=== PATIENT | female | born 1955 | race Caucasian/White ===

== ENCOUNTER → 2020-07-14 | Outpatient (CLI) | payer MEDICARE ==
--- NOTE | 2020-07-16 09:07 | MM ---
Reason for exam: screening (asymptomatic). Last mammogram was performed 10 years and 2 months ago. History: Patient is postmenopausal and is nulliparous. Benign stereotactic core biopsy of the right breast, July 12, 1999. Physical Findings: A clinical breast exam by your physician is recommended on an annual basis and results should be correlated with mammographic findings. MG 3D Screening Mammo W/Cad Bilateral CC and MLO view(s) were taken. Prior study comparison: May 24, 2010, bilateral digital screening mammogram. November 15, 2007, bilateral digital screening mammogram. The breast tissue is heterogeneously dense. This may lower the sensitivity of mammography. There are benign appearing round calcifications bilaterally. Previous mammotome biopsy in the right breast. There is chronic nodularity in the right breast. There is no discrete abnormality. ASSESSMENT: Benign, BI-RAD 2 RECOMMENDATION: Routine screening mammogram of both breasts in 1 year.
== END | disposition home or self-care (01) ==
LOC: RADMAMWWP 09:22
PROVIDERS: ATTEND Obstetrics & Gynecology
DX: Z12.31 Encounter for screening mammogram for malignant neoplasm of breast (principal)
CPT/HCPCS: 77063; 77067

== ENCOUNTER → 2020-08-09 | Outpatient (CLI) | payer MEDICARE ==
--- NOTE | 2020-08-09 12:07 | BD ---
EXAMINATION TYPE: Axial Bone Density DATE OF EXAM: 08/09/2020 COMPARISON: DEXA bone scan report 2007 CLINICAL HISTORY: Postmenopausal female Height: 5 FT 2 IN Weight: 247 FRAX RISK QUESTIONS: Alcohol (3 or more units per day): NO Family History (Parent hip fracture): NO Glucocorticoids (More than 3mos): NO (Ex: prednisone, prednisolone, methylprednisolone, dexamethasone, and hydrocortisone). History of Fracture in Adulthood: NO Secondary Osteoporosis: 1. Type 1 Diabetes: NO 2. Hyperthyroidism: NO 3. Menopause before 45: NO 4. Malnutrition: NO 5. Chronic liver disease: NO Rheumatoid Arthritis: NO Current Tobacco Use: NO RISK FACTORS HISTORY OF: Family History of Osteoporosis: NO Active: YES Diet low in dairy products/other sources of calcium: NO Postmenopausal woman: AGE 48 Take estrogen and/or progesterone medications: NONE Lost more than 2 inches in height since high school: NO MEDICATIONS: Additional Medications: METFORMIN Additional History: EXAM MEASUREMENTS: Bone mineral densitometry was performed using the [employer] System. Bone mineral density as measured about the Lumbar spine is: ----- L1-L4(G/cm2): 1.421 T Score Values are as follows: ----- L2: 1.2 ----- L3: 1.7 ----- L4: 3.2 ----- L1-L4: 2.0 Bone mineral density has: INCREASED 10.2 % since study of: 2007 Bone mineral density about the R hip (g/cm2): 1.012 Bone mineral density about the L hip (g/cm2): 1.034 T Score values are as follows: -----R Neck: -0.2 -----L Neck: 0.0 -----R Total: 0.9 -----L Total 1.4: Bone mineral density has: DECREASED -1.5 % since study of: 2007 IMPRESSION: Normal (Values between +1 and -1 indicate normal bone mass). Consider repeating this study in 5 year s or sooner if there is some new clinical indication. NOTE: T-SCORE=SD OF THE YOUNG ADULT MEAN.
== END | disposition home or self-care (01) ==
LOC: RADBDWWP 09:14
PROVIDERS: ATTEND Obstetrics & Gynecology
DX: N95.1 Menopausal and female climacteric states (principal)
CPT/HCPCS: 77080

== ENCOUNTER → 2021-04-05 | Outpatient (CLI) | payer MEDICARE ==
--- NOTE | 2021-04-05 15:58 | US ---
EXAMINATION TYPE: US pelvis complete transvag DATE OF EXAM: 04/05/2021 COMPARISON: NONE CLINICAL HISTORY: N95 Post menopausal bleeding. Spotting. TECHNIQUE: Transvaginal (TV) and Transabdominal (TA) . Transabdominal sonographic images of the pel vis were acquired. Transvaginal sonographic images were medically necessary to better assess the fol lowing anatomy: Endometrium Date of LMP: GREEN CHAINER EXAM MEASUREMENTS: Uterus: 6.8 x 4.2 x 2.9 cm Endometrial Stripe: 1.3 cm 1. Uterus: Anteverted Heterogenous 2. Endometrium: Thickened and slightly vascular, irregular borders 3. Right Ovary: Obscured by overlying bowel gas 4. Left Ovary: Obscured by overlying bowel gas 5. Bilateral Adnexa: wnl 6. Posterior cul-de-sac: no free fluid IMPRESSION: 1. The endometrial stripe is thickened and somewhat irregular measuring 1.3 cm. Correlate for endomet rial pathology including endometrial hyperplasia and carcinoma. 2. Heterogeneous appearance to the uterus is nonspecific.
== END | disposition home or self-care (01) ==
LOC: RADUSWWP 15:25
PROVIDERS: ATTEND Obstetrics & Gynecology
DX: N95.0 Postmenopausal bleeding (principal)
CPT/HCPCS: 76830; 76856

== ENCOUNTER → 2021-05-04 | Outpatient (CLI) | payer MEDICARE ==
[2021-05-04 19:27] LABS: Basophils # (A) 0.1 k/uL (0-0.2); Basophils % (A) 1 %; Eosinophils # (A) 0.1 k/uL (0-0.7); Eosinophils % (A) 1 %; HCT 42.8 % (34.0-46.0); HGB 14.8 gm/dL (11.4-16.0); Lymphocytes # (A) 2.4 k/uL (1.0-4.8); Lymphocytes % (A) 25 %; MCH 30.9 pg (25.0-35.0); MCHC 34.5 g/dL (31.0-37.0); MCV 89.4 fL (80.0-100.0); Mean Platelet Volume 8.7; Monocytes # (A) 0.4 k/uL (0-1.0); Monocytes % (A) 5 %; Neutrophils # (A) 6.2 k/uL (1.3-7.7); Neutrophils % (A) 67 %; Platelet Count 564 k/uL (150-450); RBC 4.79 m/uL (3.80-5.40); RDW 13.4 % (11.5-15.5); WBC 9.4 k/uL (3.8-10.6)
== END | disposition home or self-care (01) ==
LOC: LABPAT 14:04
PROVIDERS: ATTEND Obstetrics & Gynecology
DX: Z01.818 Encounter for other preprocedural examination (principal); I99.8 Other disorder of circulatory system; R94.31 Abnormal electrocardiogram [ECG] [EKG]
CPT/HCPCS: 85025; 93005

== ENCOUNTER 2021-05-20 11:05 | Day surgery (SDC) | payer MEDICARE ==
[2021-05-16 15:23] VITALS: BMI 41.1
--- NOTE | 2021-05-19 20:14 | P.HPOB ---
History of Present Illness H&P Date: 05/19/21 Chief Complaint: Postmenopausal bleeding, endometrial thickening This is a 66 y.o. female, 0, who presents for dilatation and curettage with hysteroscopy due to postmenopausal bleeding and endometrial thickening on ultrasound. She began noticing bleeding off and on about 6 months ago. It happens more often after lifting and is usually only when she wipes. Pelvic ultrasound showed uterus measuring 6.8 x 4.2 x 2.9 cm with endometrium measuring 1.3 cm, slightly vascular with irregular borders. Neither ovary was visualized. 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 Not currently sexually active. Social: Single. Works at [employer]. Review of Systems Constitutional: Denies chills, Denies fever Eyes: denies blurred vision, denies pain Ears, nose, mouth and throat: Denies headache, Denies sore throat Cardiovascular: Denies chest pain, Denies shortness of breath Respiratory: Denies cough Gastrointestinal: Denies abdominal pain, Denies diarrhea, Denies nausea, Denies vomiting Genitourinary: Reports abnormal vaginal bleeding, Reports stress incontinence, Denies dysuria, Denies hematuria Menstruation: Reports postmenopausal Musculoskeletal: Reports muscle cramps, Denies myalgias Integumentary: Denies pruritus, Denies rash Neurological: Denies numbness, Denies weakness Psychiatric: Denies anxiety, Denies depression Past Medical History Past Medical History: Diabetes Mellitus, Hyperlipidemia, Hypertension, Sleep Apnea/CPAP/BIPAP Additional Past Medical History / Comment(s): post menopausal bleeding, uses cpap,"prediabetes,states hgb A1C 7" History of Any Multi-Drug Resistant Organisms: MRSA Date of last positivie culture/infection: 2008 MDRO Source:: rt arm spider bite Past Surgical History: Cholecystectomy, Orthopedic Surgery Additional Past Surgical History / Comment(s): rt knee procedure Past Anesthesia/Blood Transfusion Reactions: Postoperative Nausea & Vomiting (PONV) Past Psychological History: No Psychological Hx Reported Smoking Status: Former smoker Past Alcohol Use History: Occasional Past Drug Use History: None Reported - Past Family History Mother Family Medical History: Cancer Father Family Medical History: Cancer Medications and Allergies Home Medications Medication Instructions Recorded Confirmed Type Acetaminophen [Tylenol] 325 - 650 mg PO Q4H PRN 05/17/21 05/17/21 History Atorvastatin [Lipitor] 10 mg PO DAILY 05/17/21 05/17/21 History Lisinopril-Hctz 10-12.5 mg 1 tab PO QAM 05/17/21 05/17/21 History [Zestoretic 10-12.5] metFORMIN HCL [Glucophage] 500 mg PO 1800 05/17/21 05/17/21 History Allergies Allergy/AdvReac Type Severity Reaction Status Date / Time Penicillins Allergy Unknown Verified 05/16/21 15:13 Sulfa (Sulfonamide Allergy Unknown Verified 05/16/21 15:13 Antibiotics) sulfamethoxazole Allergy Rash/Hives Verified 05/16/21 15:13 [From Bactrim] tetracycline Allergy Rash/Hives Verified 05/16/21 15:13 [From Achromycin] trimethoprim [From Bactrim] Allergy Rash/Hives Verified 05/16/21 15:13 Exam Osteopathic Statement: *. No significant issues noted on an osteopathic structural exam other than those noted in the History and Physical/Consult. HEENT: within normal limits Heart: regular rate and rhythm Lungs: clear to auscultation bilaterally Abdomen: soft, non-tender Pelvic: uterus mildly tender, anteverted, no adnexal masses, mildly tender on right Extremities: neg. Susanne's Assessment and Plan (1) Postmenopausal bleeding Status: Acute Code(s): N95.0 - POSTMENOPAUSAL BLEEDING SNOMED Code(s): 7674 2008 (2) Endometrial thickening on ultrasound Status: Acute Code(s): R93.89 - ABNORMAL FINDINGS ON DX IMAGING OF OTH BODY STRUCTURES SNOMED Code(s): 476433980 Plan: Proceed with dilatation and curettage with hysteroscopy. I have discussed the risks, benefits, and alternative therapies for the above- mentioned procedure and for both sedation/anesthesia as well as necessary blood products administration, if indicated, as they pertain to this patient. The patient has indicated her understanding and acceptance of the risks and procedures discussed.
[~2021-05-20 11:05] MED LIST: DEXAMETHASONE SOD PHOSPHATE 4 MG/ML 1 ML VIAL IV ONE; LACTATED RINGERS 1,000 ML IV SCH; MIDAZOLAM 2 MG/2 ML VIAL IV PRN; ONDANSETRON 4 MG/2 ML VIAL IVP ONE; Pre Op ABX Message 1 EACH MISC MISCELLANE ONE
[2021-05-20] MEDS ORDERED: LIDOCAINE 1% (10MG/ML) FOR IV START INTRADERMA ONE (12:09)
[2021-05-20 12:11] LABS: Glucose,Whole Blood 201 mg/dL (75-99)
[2021-05-20] MEDS ORDERED: fentaNYL (PF) 50 MCG/ML 2 ML AMP ONE (12:29)
[2021-05-20] MEDS ORDERED: PROPOFOL 10 MG/ML 20 ML VIAL IV ONE (12:29)
[2021-05-20] MEDS ORDERED: MIDAZOLAM 2 MG/2 ML VIAL ONE (12:29)
[2021-05-20] MEDS ORDERED: LIDOCAINE 1% INJ 10MG/ML (20 ML MDV) ONE (12:29)
--- NOTE | 2021-05-20 13:03 | P.OP ---
Date of Procedure: 05/20/21 Preoperative Diagnosis: Postmenopausal bleeding Endometrial thickening Postoperative Diagnosis: Same Procedure(s) Performed: Dilation and curettage with hysteroscopy Anesthesia: NERIS Surgeon: Frieda Corrales Estimated Blood Loss (ml): 10 Pathology: other (Endometrial curettings) Condition: stable Disposition: same day Indications for Procedure: This is a 66 y.o. female, 0, who presents for dilatation and curettage with hysteroscopy due to postmenopausal bleeding and endometrial thickening on ultrasound. She began noticing bleeding off and on about 6 months ago. It happens more often after lifting and is usually only when she wipes. Pelvic ultrasound showed uterus measuring 6.8 x 4.2 x 2.9 cm with endometrium measuring 1.3 cm, slightly vascular with irregular borders. Neither ovary was visualized. Operative Findings: The patient was taken to the operating room where she is placed in the dorsal lithotomy position. She is prepped and draped in the normal sterile fashion. Bladder is drained with a catheter and then removed. Examination is under anesthesia. Uterus is sounded be small, retroverted, with no adnexal masses palpated. Next a weighted speculum was placed in the patient's vagina and a right angle retractor was used to visualize the cervix. Anterior lip of the cervix is grasped with a single-tooth tenaculum. Cervix is gently dilated with a Palafox dilator until a out to be placed. Uterus is sounded to 7 cm. Cervix is gently dilated further until a hysteroscope could be passed. Hysteroscopy is performed using normal saline. The above noted findings are made and pictures are taken. There was a significant amount of thickened tissue visualized. Neither tubal ostia is visualized. Next a polyp forceps was introduced and a moderate amount of endometrial tissue was obtained. Next a medium-size sharp curet was introduced and sharp curettage was performed until a gritty texture was noted. A large amount of tissue was obtained. Next the single-tooth tenaculum was removed from the cervix. Pressure was applied with a ring forcep. Once the ring forcep was removed, no active bleeding was noted. All instrument are removed from the vagina. Thus minutes sent to pathology labeled endometrial curettings. Estimated blood loss is approximately 10 mL's. All sponge and needle counts are correct. Description of Procedure: Uterus is retroverted, sounded to 7 cm. No adnexal masses are palpated. A very thickened dyssynchronous appearance was noted to the endometrium on hysteroscopy. Neither tubal ostia is visualized. A large amount of tissue is obtained.
[2021-05-20] MEDS ORDERED: KETOROLAC 15 MG/ML 1 ML VIAL ONE (13:14)
[2021-05-20 13:17] VITALS: TEMP 97
[2021-05-20] MEDS: HYDROmorphone 0.5 MG/0.5 ML SYRINGE IVP PRN ×4 (13:18→13:42)
[2021-05-20] MEDS ORDERED: diphenhydrAMINE 50 MG/ML 1 ML VIAL ONE (13:33)
[2021-05-20] MEDS: fentaNYL (PF) 50 MCG/ML 2 ML AMP IVP ONE ×2 (13:54→13:59)
[2021-05-20] MEDS ORDERED: ONDANSETRON 4 MG/2 ML VIAL ONE (14:00)
[2021-05-20] MEDS ORDERED: ACETAMINOPHEN IV (For NPO) 1,000 MG/100 ML VIAL IVPB ONE (14:07)
[2021-05-20] MEDS ORDERED: LACTATED RINGERS 1,000 ML IV ONE (14:22)
[2021-05-20 14:40] VITALS: RESP 16
[2021-05-20 14:54] VITALS: BP 122/77; PULSE 81
== END 2021-05-20 15:21 | disposition home or self-care (01) ==
LOC: OR 11:05
PROVIDERS: ATTEND Obstetrics & Gynecology
DX: C56.9 Malignant neoplasm of unspecified ovary (principal); N85.00 Endometrial hyperplasia, unspecified; N95.0 Postmenopausal bleeding; R93.89 Abnormal findings on diagnostic imaging of other specified body structures; E11.9 Type 2 diabetes mellitus without complications; E66.9 Obesity, unspecified; Z68.41 Body mass index [BMI] 40.0-44.9, adult; E78.5 Hyperlipidemia, unspecified; I10 Essential (primary) hypertension; G47.33 Obstructive sleep apnea (adult) (pediatric); Z86.14 Personal history of Methicillin resistant Staphylococcus aureus infection; Z90.49 Acquired absence of other specified parts of digestive tract; Z98.890 Other specified postprocedural states; Z87.891 Personal history of nicotine dependence; Z80.9 Family history of malignant neoplasm, unspecified; Z79.84 Long term (current) use of oral hypoglycemic drugs; Z79.899 Other long term (current) drug therapy; Z88.1 Allergy status to other antibiotic agents; Z88.0 Allergy status to penicillin; Z88.2 Allergy status to sulfonamides
CPT/HCPCS: 88305; 84132; 58558; J2250; J1200; J1100; J2405; J2001; J3010; J0131; J1885; J2704; J1170

== ENCOUNTER → 2021-07-06 | Outpatient (CLI) | payer MEDICARE ==
[2021-07-06 11:07] LABS: African American GFR (CKD) >90 (>60 ml/min/1.73 sqM); Blood Urea Nitrogen 18 mg/dL (7-17); Non-African American GFR(CKD) >90 (>60 ml/min/1.73 sqM)
--- NOTE | 2021-07-06 11:43 | XR ---
EXAMINATION TYPE: XR chest 2V DATE OF EXAM: 07/06/2021 COMPARISON: NONE HISTORY: Shortness of breath TECHNIQUE: Frontal and lateral views of the chest are obtained. FINDINGS: Scattered senescent parenchymal changes noted. Hyperinflation compatible with COPD. No evidence for infiltrate. No evidence for atelectasis. Heart size is stable. Mediastinal structures are stable and grossly unremarkable. No evidence for hilar prominence. Degenerative changes dorsal spine. IMPRESSION: 1. No evidence for acute pulmonary disease.
--- NOTE | 2021-07-06 11:51 | CT ---
EXAMINATION TYPE: CT abdomen pelvis w con DATE OF EXAM: 07/06/2021 COMPARISON: None HISTORY: Endometrial Cancer CT DLP: 1436 mGycm CONTRAST: CT scan of the abdomen and pelvis is performed with Oral Contrast and with IV Contrast, patient injec roger with 100 ml mL of Isovue 370. FINDINGS: LUNG BASES-: No visible nodule. No infiltrate. Small hiatal hernia noted. LIVER/GB: The gallbladder surgically absent. No space occupying hepatic lesion. Biliary tree is of normal caliber. PANCREAS: No inflammation. No distinct mass. SPLEEN: No splenic enlargement. No lesion seen. ADRENALS: No nodule. No thickening. KIDNEYS/BLADDER: No hydronephrosis. No nephrolithiasis. No distinct renal mass. Urinary bladder g rossly unremarkable. BOWEL: Normal appendix. Normal bowel caliber. No inflammation. GENITAL ORGANS: The uterus is of normal size. No masses are present. No adnexal or ovarian masses. N o pelvic free fluid. LYMPH NODES: No greater than 1cm abdominal or pelvic lymph nodes are appreciated. AORTA: No significant abnormality. OSSEOUS STRUCTURES: No significant abnormality is seen. OTHER: No significant additional abnormality is seen. IMPRESSION: 1. No evidence for metastatic disease.
== END ==
LOC: RADCTMAIN 09:40
PROVIDERS: ATTEND Obstetrics & Gynecology
DX: D07.39 Carcinoma in situ of other female genital organs (principal)
CPT/HCPCS: 82565; 84520; 71046; 74177; 36415; Q9967

== ENCOUNTER → 2021-07-27 | Outpatient (CLI) | payer MEDICARE ==
--- NOTE | 2021-07-28 12:15 | MM ---
Reason for exam: screening (asymptomatic). Last mammogram was performed 1 year ago. History: Patient is postmenopausal and is nulliparous. Benign stereotactic core biopsy of the right breast, July 12, 1999. Physical Findings: A clinical breast exam by your physician is recommended on an annual basis and results should be correlated with mammographic findings. MG 3D Screening Mammo W/Cad Bilateral CC and MLO view(s) were taken. Prior study comparison: July 14, 2020, bilateral MG 3d screening mammo w/cad. May 24, 2010, bilateral digital screening mammogram. There are scattered fibroglandular densities. There are benign appearing round dystrophic calcifications bilaterally. There is chronic nodularity in the right breast. There is no discrete abnormality. ASSESSMENT: Benign, BI-RAD 2 RECOMMENDATION: Routine screening mammogram of both breasts in 1 year.
== END | disposition home or self-care (01) ==
LOC: RADMAMWWP 07:50
PROVIDERS: ATTEND Obstetrics & Gynecology
DX: Z12.31 Encounter for screening mammogram for malignant neoplasm of breast (principal); Z78.0 Asymptomatic menopausal state
CPT/HCPCS: 77063; 77067

== ENCOUNTER → 2022-02-06 | Outpatient (CLI) | payer MEDICARE ==
[2022-02-06 11:30] LABS: African American GFR (CKD) >90 (>60 ml/min/1.73 sqM); Blood Urea Nitrogen 23 mg/dL (7-17); Non-African American GFR(CKD) 84 (>60 ml/min/1.73 sqM)
--- NOTE | 2022-02-06 22:40 | CT ---
EXAMINATION TYPE: CT ChestAbdPelvis w con DATE OF EXAM: 02/06/2022 COMPARISON: CT abdomen and pelvis dated 07/06/2021. No previous CT chest. HISTORY: Stage 1A endometrial adenocarcinoma CT DLP: 2134.6 mGycm Automated exposure control for dose reduction was used. CONTRAST: CT scan of the chest, abdomen and pelvis is performed with Oral Contrast and with IV Contrast, patien t injected with 70 mL of Isovue 300. FINDINGS: LUNGS: Faint 3 mm nodule is seen at the medial aspect of the right upper lobe (image #11, series 4). 2 mm nodule is seen along the right oblique fissure. Grossly unremarkable remainder of the lungs. Pat ent trachea and main bronchi. No pleural effusion. MEDIASTINUM: There are no greater than 1 cm hilar or mediastinal lymph nodes. Increased cardiac size. No pericardial effusion is seen. OTHER: No gross aggressive bone lesion. LIVER/GB: Previous cholecystectomy. Unremarkable liver. PANCREAS: No significant abnormality is seen. SPLEEN: No significant abnormality is seen. ADRENALS: No significant abnormality is seen. KIDNEYS: No significant abnormality is seen. BOWEL: Small sliding hiatal hernia, otherwise unremarkable stomach. Duodenal diverticula. No evidenc e of small bowel obstruction. Colonic diverticulosis without evidence of acute diverticulitis. Mild n onspecific colonic wall thickening which could be related to chronic colitis. Normal appendix. REPRODUCTIVE ORGANS: Previous hysterectomy. No adnexal mass. LYMPH NODES: No greater than 1 cm abdominal or pelvic lymph nodes are appreciated. OSSEOUS STRUCTURES: No aggressive bone lesion. Degenerative changes of the lumbar spine. OTHER: Left fat-containing inguinal hernia versus lipoma. No sizable ascites. No obvious peritoneal n odules. IMPRESSION: Few right lung nodules as described above. Considering the history of endometrial cancer and the lack of previous CT chest for comparison, a short-term follow-up in 2-3 months is advised. Otherwise no e vidence of metastatic disease in the chest, abdomen or the pelvis. Incidental findings as described tim dunn.
== END | disposition home or self-care (01) ==
LOC: RADCTMAIN 10:38
PROVIDERS: ATTEND Obstetrics & Gynecology
DX: C54.1 Malignant neoplasm of endometrium (principal)
CPT/HCPCS: 82565; 84520; 71260; 74177; 36415; Q9967 ×2

== ENCOUNTER → 2022-05-19 | Outpatient (CLI) | payer MEDICARE ==
--- NOTE | 2022-05-19 11:49 | CT ---
EXAMINATION TYPE: CT ChestAbdPelvis w con CT DLP: 1566 mGycm, Automated exposure control for dose reduction was used. DATE OF EXAM: 05/19/2022 11:36 AM COMPARISON: CT chest abdomen pelvis 02/06/2022. CLINICAL INDICATION:Female, 67 years old with history of C54.1 endometrial ca; PHH, Endometrial ca fo llow up Technique: Multiple axial images of the chest, abdomen, and pelvis were obtained following the intrav enous administration of 100 mL Isovue-370. Two-dimensional coronal and sagittal reconstructions were obtained. Findings: CHEST: LUNGS/ PLEURA: No pneumothorax, pleural effusion, or focal consolidation. Stable 3 mm nodule along th e right major fissure (series 4, image 23). This is favored to represent an intrafissural lymph node. Stable faint 3 mm nodule at the medial aspect of the right upper lobe (series 4, image 14). No new o r enlarging pulmonary nodules. AIRWAY: Patent and unremarkable.. HEART: Size within normal limits. No pericardial effusion. MEDIASTINUM: No evidence of pathologic adenopathy. VASCULATURE: No aortic aneurysm. MUSCULOSKELETAL: No acute osseous abnormalities. No aggressive osseous lesions. SOFT TISSUES/LYMPH NODES: Unremarkable. LOWER NECK: No significant findings. ABDOMEN: ABDOMEN LIVER: Unremarkable GALLBLADDER AND BILE DUCTS: The gallbladder is surgically absent. No biliary duct dilatation. PANCREAS: Unremarkable. SPLEEN: Unremarkable. ADRENAL GLANDS: Unremarkable. KIDNEYS AND URETERS: No evidence of hydronephrosis or renal calculus. The kidneys enhance symmetrical ly. PELVIS BLADDER: Incompletely distended but grossly unremarkable. REPRODUCTIVE: The uterus is surgically absent. No adnexal mass. ABDOMEN & PELVIS STOMACH AND BOWEL: Small hiatal hernia. Duodenal diverticula associated. Scattered distal colonic div erticulosis without evidence for acute diverticulitis. No evidence of bowel obstruction. PERITONEUM: No evidence of pneumoperitoneum or free fluid. No peritoneal nodularity. VASCULATURE: No evidence of aortic aneurysm. MUSCULOSKELETAL: No acute osseous abnormalities. No aggressive osseous lesions. Multilevel degenerati ve changes of the lumbar spine. LYMPH NODES: No gross evidence for lymphadenopathy. SOFT TISSUE/ABDOMINAL WALL: Bilateral inguinal fat filled hernias left greater than right. IMPRESSION: 1. No definitive evidence for local recurrence or distant metastasis. 2. Stable few tiny pulmonary nodules measuring up to 3 mm. No new or enlarging pulmonary nodules. Att ention on follow-up. 3. Colonic diverticulosis without evidence for diverticulitis.
== END | disposition home or self-care (01) ==
LOC: RADCTMAIN 09:01
PROVIDERS: ATTEND Obstetrics & Gynecology
DX: C54.1 Malignant neoplasm of endometrium (principal); R91.8 Other nonspecific abnormal finding of lung field; K57.30 Diverticulosis of large intestine without perforation or abscess without bleeding
CPT/HCPCS: 82565; 84520; 71260; 74177; 36415; Q9967

== ENCOUNTER → 2022-07-28 | Outpatient (CLI) | payer MEDICARE ==
--- NOTE | 2022-07-31 10:39 | MM ---
Reason for Exam: Screening (asymptomatic). Last screening mammogram was performed 12 month(s) ago. Patient History: Menarche at age 11. Patient has no children. Left ovary removed at age 66. Right ovary removed at age 66. Hysterectomy at age 66. Postmenopausal. 07/12/1999, Benign Stereotactic Core Biopsy on the right side. Risk Values: [place] 5 year model risk: 2.3%. NCI Lifetime model risk: 6.9%. Prior Study Comparison: 05/24/2010 Bilateral Screening Mammogram, [facility]. 07/14/2020 Bilateral Screening Mammogram, [facility]. 07/27/2021 Bilateral Screening Mammogram, [facility]. Tissue Density: The breast tissue is heterogeneously dense. This may lower the sensitivity of mammography. Findings: Analyzed By CAD. Symmetrical and stable. Chronic nodularity is within the mid right breast. A core marker is within the right breast. No significant interval changes are evident. No suspicious groups of microcalcifications, spiculated or lobular masses, architectural distortion or other secondary signs of malignancy are mammographically apparent. Overall Assessment: Benign, BI-RAD 2 Management: Screening Mammogram of both breasts in 1 year. A negative mammogram report should not preclude additional follow up of suspicious palpable abnormalities. Patient should continue monthly self breast exam. A clinical breast exam by your physician is recommended on an annual basis and results should be correlated with mammographic findings. Electronically signed and approved by: Long Hannah D.O. Radiologis
== END | disposition home or self-care (01) ==
LOC: RADMAMWWP 11:27
PROVIDERS: ATTEND Obstetrics & Gynecology
DX: Z12.31 Encounter for screening mammogram for malignant neoplasm of breast (principal); Z78.0 Asymptomatic menopausal state; Z90.721 Acquired absence of ovaries, unilateral
CPT/HCPCS: 77063; 77067

== ENCOUNTER → 2023-06-06 | Outpatient (CLI) | payer MEDICARE ==
[2023-06-06 12:52] LABS: INR 0.9 (<1.2); Partial Thromboplastin Time 24.1 sec (22.0-30.0); Prothrombin Time 9.9 sec (10.0-12.5)
[2023-06-06 19:20] LABS: ALT 16 U/L (8-44); AST 19 U/L (13-35); Albumin 4.3 d/dL (3.8-4.9); Albumin/Globulin Ratio 2.15 Ratio (1.60-3.17); Alkaline Phosphatase 61 U/L (41-126); BUN/Creat Ratio 25.71 Ratio (12.00-20.00); Calcium 9.5 mg/dL (8.7-10.3); Carbon Dioxide 24.9 mmol/L (21.6-31.8); Chloride 104 mmol/L (96-109); Glucose 102 mg/dL (70-110); Potassium 4.3 mmol/L (3.5-5.5); Sodium 142 mmol/L (135-145); Total Bilirubin 0.3 mg/dL (0.3-1.2); Total Protein 6.3 d/dL (6.2-8.2)
[2023-06-06 21:12] LABS: HGB 12.9 d/dL (12.0-15.0); MCH 30.5 pg (27.0-32.0); MCHC 32.3 d/dL (32.0-37.0); MCV 94.6 FL (80.0-97.0); Mean Platelet Volume 9.8 FL (9.5-12.2); NRBC Per 100 WBC 0 X 10*3/uL (0.00-0.01); Platelet Count 387 X 10*3/uL (140-440); RBC 4.23 X 10*6/uL (4.10-5.20); RDW 14.2 % (11.5-14.5); WBC 5.25 X 10*3/uL (4.50-10.00)
[2023-06-06 23:11] LABS: Appearance,Urine Clear (Clear); Bilirubin,Urine Negative (Negative); Blood,Urine Negative (Negative); Color,Urine Yellow (Yellow); Ketones,Urine Negative (Negative); Nitrite,Urine Negative (Negative); PH, Urine 5.5; Specific Gravity,Urine 1.021 (1.001-1.030); Urobilinogen,Urine 0.2 E.U./DL
== END | disposition home or self-care (01) ==
LOC: LABPAT 11:09
PROVIDERS: ATTEND Orthopaedic Surgery
DX: Z01.818 Encounter for other preprocedural examination (principal); M17.11 Unilateral primary osteoarthritis, right knee; R94.31 Abnormal electrocardiogram [ECG] [EKG]
CPT/HCPCS: 80053; 81003; 85027; 85610; 85730; 87070; 93005

== ENCOUNTER 2023-06-26 05:33 | Day surgery (SDC) | payer MEDICARE ==
[2023-06-26] MEDS ORDERED: ONDANSETRON 4 MG/2 ML VIAL IVP ONE (05:49)
[2023-06-26] MEDS ORDERED: DEXAMETHASONE SOD PHOSPHATE 4 MG/ML 1 ML VIAL IV ONE (05:49)
[2023-06-26] MEDS ORDERED: LIDOCAINE 1% (10MG/ML) FOR IV START INTRADERMA PRN (05:49)
[2023-06-26] MEDS ORDERED: ACETAMINOPHEN TAB 500 MG TAB PO STA (06:04)
[2023-06-26] MEDS ORDERED: GABAPENTIN 300 MG CAP PO STA (06:04)
[2023-06-26] MEDS ORDERED: TRANEXAMIC 1,000 MG/100ML-NACL 1,000 MG in SALINE 1 100ML.BAG IVPB ONE ×2 (06:05→06:06)
[2023-06-26] MEDS: MELOXICAM 7.5 MG TAB PO SCH (06:15)
[2023-06-26] MEDS: LACTATED RINGERS 1,000 ML IV SCH (06:28)
[2023-06-26 06:32] LABS: Glucose,Whole Blood 116 mg/dL (70-110)
[2023-06-26] MEDS ORDERED: fentaNYL (PF) 50 MCG/ML 2 ML AMP IVP ONE (06:36)
[2023-06-26] MEDS ORDERED: MIDAZOLAM 2 MG/2 ML VIAL IVP ONE ×2 (06:36)
[2023-06-26] MEDS ORDERED: PHENYLEPHRINE 10 MG/ML 5 ML VIAL ONE (06:57)
[2023-06-26] MEDS ORDERED: fentaNYL (PF) 50 MCG/ML 2 ML AMP ONE (06:57)
[2023-06-26] MEDS ORDERED: SODIUM CHLORIDE 0.9% (PF) 10 ML VIAL ONE (06:57)
[2023-06-26] MEDS ORDERED: PROPOFOL 10 MG/ML 20 ML VIAL IV ONE (06:57)
[2023-06-26] MEDS ORDERED: MIDAZOLAM 2 MG/2 ML VIAL ONE (06:57)
[2023-06-26] MEDS ORDERED: DEXAMETHASONE SOD PHOSPHATE 4 MG/ML 1 ML VIAL ONE (06:57)
[2023-06-26] MEDS ORDERED: ROPIVACAINE 5 MG/ML 30 ML VIAL ONE (06:57)
[2023-06-26] MEDS ORDERED: TRANEXAMIC 1,000 MG/100ML-NACL PREMIX BAG ONE (06:57)
[2023-06-26] MEDS ORDERED: HYDROmorphone 0.5 MG/0.5 ML SYRINGE IVP PRN ×3 (07:00→08:58)
[2023-06-26] MEDS ORDERED: MIDAZOLAM 2 MG/2 ML VIAL IV PRN (07:00)
[2023-06-26] MEDS ORDERED: ceFAZolin 1,000 MG in SODIUM CHLORIDE 0.9% 1,000 ML IRRIGATION ONE (07:01)
[2023-06-26] MEDS ORDERED: ROPIVACAINE 1,100 MG, SODIUM CHLORIDE 0.9% 500 ML 330 ML, EMPTY PAIN BALL 1 EACH MISCELLANE PRN ×2 (07:22)
--- NOTE | 2023-06-26 07:24 | P.ANPRN ---
Procedure Note - Anesthesia - Nerve Block Performed Right Adductor Canal Infusion Time Out Performed: Yes Date of Procedure: 06/26/23 Procedure Start Time: 06:35 Procedure Stop Time: 06:45 Location of Patient: PreOp Indication: Acute Post-Operative Pain, Requested by Surgeon Sedation Type: Sedate with meaningful contact maintained Preparation: Sterile Prep, Sterile Dressing Position: Supine Catheter: Indwelling Needle Types: Pajunk Needle Gauge: 18 Ultrasound used to visualize needle placement: Yes Ultrasound used to observe medication spread: Yes Injectate: 0.5% Ropivacaine (see comment for volume) (15 ml + 10 ml NS + 4 mg Dexamethasone) Blood Aspirated: No Pain Paresthesia on Injection Noted: No Resistance on Injection: Normal Image Stored and Saved: Yes Events: Uneventful and Well Tolerated
--- NOTE | 2023-06-26 07:25 | P.ANPRN ---
Procedure Note - Anesthesia - Nerve Block Performed Right iPack Single Time Out Performed: Yes Date of Procedure: 06/26/23 Procedure Start Time: 06:46 Procedure Stop Time: 06:52 Location of Patient: PreOp Indication: Acute Post-Operative Pain, Requested by Surgeon Sedation Type: Sedate with meaningful contact maintained Preparation: Sterile Prep Position: Left Lateral Needle Gauge: 21 Ultrasound used to visualize needle placement: Yes Ultrasound used to observe medication spread: Yes Injectate: 0.5% Ropivacaine (see comment for volume) (15 ml + 10 ml NS + 4mg Dexamethasone) Blood Aspirated: No Pain Paresthesia on Injection Noted: No Resistance on Injection: Normal Image Stored and Saved: Yes
--- NOTE | 2023-06-26 08:26 | P.OP ---
Date of Procedure: 06/26/23 Preoperative Diagnosis: Severe osteoarthritis right knee Postoperative Diagnosis: Severe osteoarthritis right knee Procedure(s) Performed: Right total knee arthroplasty Implants: Jackson & Nephew Journey II CR Oxinium cruciate retaining femoral component size 5, right Jackson [employer] Nephew Journey nonporous tibial baseplate size 3, right [employer]hew Journey II, XLPE Deep Dished articular insert, size 9 mm, Size 3- 4, right Jackson [employer] Nephew Journey Carline II resurfacing patellar component, oval, 29 mm All components were cemented using Palacos R bone cement The articulation is Oxinium on polyethylene Anesthesia: spinal Surgeon: Jonny Mcnulty Permaculture Designer #1: Shazia Chatman Estimated Blood Loss (ml): 40 Pathology: none sent Condition: stable Disposition: PACU Indications for Procedure: The patient's knee is end-stage, and conservative management has failed. The operation of knee replacement has been discussed at length in the office, as well as potential risks and complications. These are inclusive of, but not limited to: Infection, bleeding, scarring, discomfort, stiffness, blood vessel and nerve damage, need for further surgery, failure to relieve symptoms, persistence, recurrence, or worsening of problems, loosening, dislocation, wear, blood clot, pulmonary embolism, , gait dysfunction, stiffness, and other risks as discussed in the office. Patient elects to proceed and the consent form has been signed. Operative Findings: The operative findings are consistent with severe osteoarthritis the right knee Description of Procedure: The patient was seen in the preoperative area, the consent was reviewed and the operative site was marked with a skin marker. The patient verified the procedure and the operative site. An adductor canal pain catheter and an iPACK block were placed by anesthesia in the preoperative area. The patient was then brought to the operating room and positioned on the operating room table in the supine position. Preoperative antibiotics and a gram of tranexamic acid were given intravenously. A spinal anesthetic was administered by the anesthesia department. Care was taken to make sure that all pressure points were adequately padded. A tourniquet was placed on the upper thigh and the lower extremity was prepped with ChloraPrep and draped in usual sterile fashion. A universal time-out was then performed which confirmed the patient's name, surgical site, ALLERGIES, and consent. The lower extremity was then exsanguinated and tourniquet was inflated to 250 mmHg. A standard anterior midline approach to the knee was performed. The skin and subcutaneous tissue were sharply dissected down to the patellar tendon. A medial parapatellar arthrotomy was then performed. The knee was then extended, the patellar was everted, and the knee was flexed. The infra-patellar fat pad was removed in order to enhance exposure. The anterior horns of both menisci were excised, and a release was performed to the posterior medial aspect of the knee. On gross visual inspection, there was complete loss of articular cartilage in the medial and patellofemoral joint spaces. There was also significant cartilage damage in the lateral compartment. There were multiple periarticular osteophytes globally about the knee which were then removed with a Ronguer. The femoral canal was then opened with the 9.5 mm intramedullary drill. The 8 mm intramedullary maci was then inserted into the femoral canal with the distal femoral cutting guide set for 5 of valgus. The distal femoral cutting block was then pinned in place. The intramedullary maci was then removed, and the distal femur was then cut. The cutting block was then removed and the cut was checked for symmetry. The resected bone was then measured to confirm the appropriate distal femoral resection. Next, the sizing guide was then placed and set for 3 external rotation based off of the epicondylar axis and Brushton's line. Pins were then placed and the drill holes, and the femur was sized with the sizing stylus. The pins were then removed, and the sizing guide was then removed. The spikes of the appropriate size femoral block was t hen placed into the predrilled holes, and malleted into place. Two 45 mm pins were then placed into the fixation holes on the cutting block. An lupe wing was then used to ensure there would be no notching with the anterior cut. The anterior condyles were cut without notching. The anterior chord cut was then performed, followed by the posterior cut, posterior chamfer cut, and the anterior chamfer cut. The collateral ligaments were protected during the entire process. The cutting block was then removed. Any remaining bone and osteophytes were removed from the femur with a Ronguer. Attention was then directed to the tibia. The remaining ACL was removed with a Ronguer, and the tibia was then gently subluxed forward with a large bent knee retractor. Any remaining menisci were excised. The posterior lateral corner was cauterized in order to coagulate the lateral geniculate artery. The extra medullary tibial cutting guide was then placed, set for the appropriate rotation, slope, and depth of resection. The proximal tibia cutting guide was then pinned in place. Proximal tibia was then cut and sized. A curved osteotome was then used to remove any posterior osteophytes from the distal femur. The femoral trial was placed. A narrow saw blade was then used to remove the anterior intracondylar femoral bone. The CR notch trial was then placed. The tibial trial was placed with the appropriate-sized insert. The knee was able to fully extend and flex to 130 and was stable throughout all range of motion. The knee was then extended and the patella was everted. Patella was then measured, and then using an osteotomy guide, the patella was cut at the appropriate level. The patellar component was sized. The patellar drill guide was placed and the patella was drilled. The patella trial was then placed. The knee was then taken through range of motion with the patella trial and the patella tracked normally using the no thumbs technique. The patella trial was then removed. The knee was then flexed and lug holes were drilled through the femoral trial and the femoral trial was then removed. The tibial was then re- exposed, and the tibial broach guide was then pinned in place after it was set for the appropriate rotation to allow for the most coverage without overhang. The tibia was then reamed and broached. The femoral canal was plugged with autologous bone. The cut surfaces of bone were then irrigated with pulsatile lavage. The knee was also irrigated with Irrisept solution. The components were then opened, the cement was mixed. Cement was placed on the backside of the femoral, tibial, and patellar components. Cement was then applied to the tibial surface and pressurized into the surface using finger pressurization technique. The tibial component was then applied and excess cement was removed after it was impacted securely noted to be flush with the cut surface. In similar fashion, the cement was applied to the cut femoral surface, pre ssurized and using finger pressurization the component was impacted in place. Excess cement was removed. The polyethylene spacer was then implanted and locked into position. Patellar component was then applied in a similar technique and the patellar clamp was used to hold patella in place while the cement hardened. The knee was held in full extension while the cement hardened. Once the cement had fully hardened, the knee was reinspected. Any other cement extrusion was removed the final range of motion testing showed range of motion from 0-130 with excellent stability, both medial and laterally and appropriate alignment of the leg. Patella tracked normally. After the cemented hardened, the tourniquet was released and hemostasis was obtained. A second gram of transexamic acid was given intravenously. The knee was again irrigated. The knee was again taken through range of motion and found to be stable throughout all range of motion of 0-130, and the patella tracked normally. The fascia was then closed with 0 Vicryl followed by #2 strata fix suture. The subcutaneous tissue was closed with 3-0 Vicryl and 3-0 strata fix. Exofin glue was used for the skin and placed with the knee in flexion. After the glue had dried, and Optafoam silver impregnated dressing was applied. A lightly compressive dressing was applied using web roll and Miguel wrap. Patient was then transferred to the stretcher and taken to recovery room in stable condition. Sponge and needle counts were correct. The training and development assistant HANSEL Salas was required due the complexity surgery and the need for a skilled operating room surgical technician. She assisted in positioning, draping, retraction, and closure of the wound.
[2023-06-26] MEDS ORDERED: LACTATED RINGERS 1,000 ML IV ONE ×2 (08:28)
[2023-06-26] MEDS ORDERED: NA PHOS,M-B/NA PHOS,DI-BA 133 ML ENEMA RECTAL PRN (08:58)
[2023-06-26] MEDS ORDERED: ONDANSETRON 4 MG/2 ML VIAL IVP PRN (08:58)
[2023-06-26] MEDS ORDERED: NALOXONE 0.4 MG/ML 1 ML VIAL IV PRN (08:58)
[2023-06-26] MEDS ORDERED: MAGNESIUM HYDROXIDE 2,400 MG/30 ML CUP PO PRN (08:58)
[2023-06-26] MEDS ORDERED: bisacodyL 10 MG SUPP RECTAL PRN (08:58)
[2023-06-26] MEDS ORDERED: HYDROcodone/APAP 7.5-325MG 1 EACH TAB PO PRN (09:00)
--- NOTE | 2023-06-26 09:22 | XR ---
EXAMINATION TYPE: XR knee limited RT DATE OF EXAM: 06/26/2023 COMPARISON: NONE TECHNIQUE: Two views submitted HISTORY: Post op FINDINGS: There is a prosthetic knee in near anatomic alignment. There is soft tissue edema and subcutaneous emphysema. IMPRESSION: 1. Postoperative change. Appears in near-anatomic alignment
[2023-06-26 09:24] LABS: Glucose,Whole Blood 117 mg/dL (70-110)
[2023-06-26 11:39] LABS: Glucose,Whole Blood 215 mg/dL (70-110)
[2023-06-26] MEDS: SODIUM CHLORIDE 0.9% 1,000 ML IV SCH (12:29)
[2023-06-26] MEDS ORDERED: MELATONIN 5 MG TABLET PO PRN (13:15)
[2023-06-26] MEDS ORDERED: DEXTROSE 50% SYRINGE 50 ML IVP PRN ×2 (13:15)
[2023-06-26] MEDS: SERTRALINE 50 MG TAB PO SCH ×2 (13:48→13:50)
[2023-06-26] MEDS: HYDROmorphone 0.5 MG/0.5 ML SYRINGE IVP PRN ×3 (14:18→23:22)
[2023-06-26] MEDS ORDERED: BENZOCAINE/MENTHOL LOZENG 1 EACH LOZENGE MUCOUS MEM PRN (15:23)
[2023-06-26 17:01] LABS: Glucose,Whole Blood 228 mg/dL (70-110)
[2023-06-26] MEDS: INSULIN ASPART (NovoLOG) 100 UNIT/ML VIAL SQ SCH ×2 (17:32→21:06)
[2023-06-26 20:33] LABS: Glucose,Whole Blood 159 mg/dL (70-110)
[2023-06-26] MEDS ORDERED: ASPIRIN 325 MG TAB PO SCH (21:00)
[2023-06-26] MEDS ORDERED: SENNOSIDES-DOCUSATE SODIUM 1 EACH TAB PO SCH (21:00)
[2023-06-26] MEDS ORDERED: RIVAROXABAN 10 MG TAB PO SCH (21:00)
[2023-06-26] MEDS: HYDROcodone/APAP 7.5-325MG 1 EACH TAB PO PRN (21:05)
[2023-06-27] MEDS: SODIUM CHLORIDE 0.9% 1,000 ML IV SCH (00:36)
--- NOTE | 2023-06-27 01:43 | CONS ---
CONSULTATION REASON FOR CONSULTATION: Advice regarding diabetes and other medical issues requested by [facility] for surgery. HISTORY OF PRESENT ILLNESS: A 68-year-old woman with a past history of multiple medical issues including diabetes mellitus type 2, underwent right total knee arthroplasty. There is no history of fever, rigors, or chills. The patient complains of numbness to the both legs, but not much pain. PAST MEDICAL HISTORY: Reviewed include hypertension, hyperlipidemia, and diabetes mellitus type 2. The rest of the history and rest of the chart is also reviewed. HOME MEDICATIONS: Zoloft. Dose and rest of medications noted. ALLERGIES: Penicillin. Rest of allergies noted. FAMILY HISTORY: History of pulmonary embolus. SOCIAL HISTORY: Previous history of smoking. REVIEW OF SYSTEMS: Fourteen-point review is negative except as mentioned earlier. PHYSICAL EXAMINATION: VITAL SIGNS: Pulse 73, blood pressure n, and respirations 17. HEENT: Conjunctivae normal. CARDIOVASCULAR: S1, S2. LUNGS: Breath sounds diminished at the bases. Scattered rhonchi. ABDOMEN: Soft and nontender. LEGS: Status post knee arthroplasty. NERVOUS SYSTEM: Nonfocal. LABORATORY DATA: Noted. ASSESSMENT: 1. Status post right total knee arthroplasty. 2. Diabetes mellitus. 3. Hypertension. 4. Hyperlipidemia. 5. Family history of pulmonary embolism. RECOMMENDATIONS AND DISCUSSION: Recommend to continue current management and symptomatic treatment. Otherwise I would recommend resume the home medication. Monitor blood sugars closely. I would also recommend short course of Xarelto as a DVT prophylaxis. Further recommendations to follow. See orders for details. MMODL / IJN: [id number] / MTDD
[2023-06-27] MEDS: LACTATED RINGERS 1,000 ML IV SCH (05:27)
[2023-06-27] MEDS: INSULIN ASPART (NovoLOG) 100 UNIT/ML VIAL SQ SCH ×2 (06:02→12:06)
[2023-06-27 06:03] LABS: Glucose,Whole Blood 118 mg/dL (70-110)
[2023-06-27] MEDS: HYDROmorphone 0.5 MG/0.5 ML SYRINGE IVP PRN (06:03)
[2023-06-27] MEDS: HYDROcodone/APAP 7.5-325MG 1 EACH TAB PO PRN (07:50)
[2023-06-27 08:24] LABS: Basophils # (A) 0.01 X 10*3/uL (0.00-0.10); Basophils % (A) 0.1 %; Eosinophils # (A) 0 X 10*3/uL (0.04-0.35); Eosinophils % (A) 0 %; HCT 38.3 % (37.2-46.3); HGB 12.3 g/dL (12.0-15.0); Lymphocytes # (A) 1.26 X 10*3/uL (0.90-5.00); Lymphocytes % (A) 13.1 %; MCH 30.1 pg (27.0-32.0); MCHC 32.1 g/dL (32.0-37.0); MCV 93.9 FL (80.0-97.0); Mean Platelet Volume 9.6 FL (9.5-12.2); Monocytes # (A) 0.81 X 10*3/uL (0.20-1.00); Monocytes % (A) 8.4 %; NRBC Per 100 WBC 0 X 10*3/uL (0.00-0.01); Neutrophils # (A) 7.52 X 10*3/uL (1.80-7.70); Neutrophils % (A) 77.9 %; Platelet Count 349 X 10*3/uL (140-440); RBC 4.08 X 10*6/uL (4.10-5.20); WBC 9.65 X 10*3/uL (4.50-10.00)
[2023-06-27 08:27] VITALS: RESP 18
[2023-06-27 08:56] LABS: BUN/Creat Ratio 22.62 Ratio (12.00-20.00); Blood Urea Nitrogen 18.1 mg/dL (9.0-27.0); Calcium 9.7 mg/dL (8.7-10.3); Carbon Dioxide 24.6 mmol/L (21.6-31.8); Chloride 106 mmol/L (96-109); Glucose 117 mg/dL (70-110); Sodium 142 mmol/L (135-145)
[2023-06-27] MEDS ORDERED: LISINOPRIL-HCTZ 10-12.5 MG 1 EACH TAB PO SCH (09:00)
[2023-06-27] MEDS ORDERED: PIOGLITAZONE 15 MG TAB PO SCH (09:00)
[2023-06-27] MEDS: MELOXICAM 7.5 MG TAB PO SCH (09:21)
[2023-06-27] MEDS: SERTRALINE 50 MG TAB PO SCH (09:24)
[2023-06-27] MEDS: ATORVASTATIN 10 MG TAB PO SCH ×2 (09:24→09:35)
--- NOTE | 2023-06-27 10:10 | P.DS ---
Providers Expected date of discharge: 06/27/23 Attending physician: Jonny Mcnulty Consults: 06/26/23 08:58 Consult Physician Routine Consulting Provider: Shayy Del Real Consult Reason/Comments: medical management Do you want consulting provider notified?: Yes Primary care physician: Robert Burnham - Discharge Diagnosis(es) (1) Osteoarthritis of right knee Current Visit: Yes Status: Acute (2) S/P total knee arthroplasty Current Visit: Yes Status: Acute Hospital Course: This is a 68-year-old male with known history of degenerative arthritis of the right knee. The patient presented for evaluation as an outpatient. After discussion and consideration patient elects to proceed with total knee arthroplasty. The patient is seen preoperatively by Dr. Mcnulty and medically cleared for surgery by their primary care physician. Patient is admitted to [facility] on 06/26/2023 for total knee arthroplasty. The procedure is performed without complication or sequelae. The patient is doing well postoperatively. Labs and vital signs are stable on day of discharge. On day of discharge patient's knee incision is healing well. There is minimal erythema. There is no drainage noted at this time. There is minimal soft tissue swelling to the knee. Patient has full foot and ankle motion without difficulty or pain. Calf is soft and nontender to palpation. Neurovascular status to the right lower extremity is intact. Patient is discharged home in good condition. Please see med rec for accurate list of home medications. Plan - Discharge Summary Discharge Rx Participant: Yes New Discharge Prescriptions: New HYDROcodone/APAP 7.5-325MG [[place] 7.5-325] 1 - 2 tab PO Q6H PRN #32 tab PRN Reason: Pain Aspirin 325 mg PO BID #60 tab Sennosides [Senokot] 2 tab PO DAILY PRN #60 tablet PRN Reason: Constipation No Action Lisinopril-Hctz 10-12.5 mg [Zestoretic 10-12.5] 1 tab PO QAM Atorvastatin [Lipitor] 10 mg PO DAILY Sertraline [Zoloft] 50 mg PO DAILY Pioglitazone [Actos] 15 mg PO DAILY Naproxen Sodium [Aleve] 220 mg PO BID PRN PRN Reason: Pain Melatonin 5 mg PO HS PRN PRN Reason: Insomnia Discharge Medication List Atorvastatin [Lipitor] 10 mg PO DAILY 05/17/21 [History] Lisinopril-Hctz 10-12.5 mg [Zestoretic 10-12.5] 1 tab PO QAM 05/17/21 [History] Melatonin 5 mg PO HS PRN 06/20/23 [History] Naproxen Sodium [Aleve] 220 mg PO BID PRN 06/20/23 [History] Pioglitazone [Actos] 15 mg PO DAILY 06/20/23 [History] Sertraline [Zoloft] 50 mg PO DAILY 06/20/23 [History] Aspirin 325 mg PO BID #60 tab 06/26/23 [Rx] HYDROcodone/APAP 7.5-325MG [[place] 7.5-325] 1 - 2 tab PO Q6H PRN #32 tab 06/26/23 [Rx] Sennosides [Senokot] 2 tab PO DAILY PRN #60 tablet 06/26/23 [Rx] Follow up Appointment(s)/Referral(s): Jonny Mcnulty DO [Doctor of Osteopathic Medicine] - 2 Weeks Activity/Diet/Wound Care/Special Instructions: Weightbearing as tolerated with a walker. CPM 5-6h daily as tolerated. Leave dressing intact. Dressing may be removed by home care nurse or by patient in 7 days. Then change dressing twice daily until follow up. May shower with initial dressing intact and after removal. If dressing become saturated, please remove. Recommend use of compression stockings daily until follow up to help prevent swelling and blood clots. May remove at night before sleeping. Please take aspirin 325mg twice daily for 30 days to prevent blood clots. Please follow up with [facility] and call with any questions or concerns, . Discharge Disposition: HOME WITH HOME HEALTH SERVICES
[2023-06-27 11:32] LABS: Glucose,Whole Blood 123 mg/dL (70-110)
[2023-06-27] MEDS ORDERED: HYDROcodone/APAP 10-325MG 1 EACH TAB PO PRN (12:06)
[2023-06-27] MEDS ORDERED: KETOROLAC 15 MG/ML 1 ML VIAL IVP PRN (13:10)
--- NOTE | 2023-06-27 14:51 | P.PN ---
Progress Note - Text Progress Note Date: 06/27/23 Postoperative day # 1 status post total knee arthroplasty, and adductor canal catheter placed for postoperative analgesia, currently at ropivacaine 0.2% 8 mL per hour and continuous infusion, visual analogue scale is 4-5/10, patient using oral pain medication for breakthrough pain. Assessment and plan= Acute postoperative pain, adductor canal catheter for pain control, pain controlled, we'll continue the same management. pateints was seen 7 am in the morning
[2023-06-27 15:10] VITALS: BP 99/62; PULSE 84; TEMP 99.3
--- NOTE | 2023-06-27 19:04 | PN ---
PROGRESS NOTE DATE OF SERVICE: 06/27/2023 SUBJECTIVE: This is a 68-year-old woman, who was admitted after right total knee arthroplasty, is improving significantly. No chest pain. No palpitations. No fever. OBJECTIVE: VITAL SIGNS: Pulse is 68, blood pressure 90/50, respirations 18. CHEST: Clear to auscultation. CARDIOVASCULAR: S1, S2. ABDOMEN: Soft. NERVOUS SYSTEM: Nonfocal. LEGS: Status post right total knee arthroplasty. LABORATORY DATA: Reviewed. ASSESSMENT: 1. Status post right total knee arthroplasty. 2. Diabetes mellitus, type 2. 3. Hypertension. 4. Hyperlipidemia. 5. Family history of pulmonary embolism. RECOMMENDATIONS AND DISCUSSION: Recommend to continue current management and symptomatic treatment. I recommend Xarelto for DVT prophylaxis. Otherwise, we will continue to monitor. Continue rest of medications. Further recommendations to follow. MMODL / IJN: [id number] /
[2023-06-28] MEDS ORDERED: ASPIRIN 325 MG TAB PO SCH (09:00)
== END 2023-06-27 17:31 | disposition home health service (06) ==
LOC: OR 05:33 → 4SSUR 08:52 → OR 06-27 17:31
PROVIDERS: ATTEND Orthopaedic Surgery
DX: M17.11 Unilateral primary osteoarthritis, right knee (principal); I10 Essential (primary) hypertension; E78.5 Hyperlipidemia, unspecified; E11.9 Type 2 diabetes mellitus without complications; Z79.1 Long term (current) use of non-steroidal anti-inflammatories (NSAID); G89.18 Other acute postprocedural pain; Z79.899 Other long term (current) drug therapy; Z90.710 Acquired absence of both cervix and uterus; Z98.890 Other specified postprocedural states; Z88.2 Allergy status to sulfonamides; Z88.0 Allergy status to penicillin
CPT/HCPCS: 27447; 97161; 64999; 64448; 80048; 85025; 83036; 73560; C1713; C1776; C1751; J2250; J1100; J0690 ×2; J2405; J3010; J2795; J1885; J1170 ×2

== ENCOUNTER → 2023-08-15 | Outpatient (CLI) | payer MEDICARE ==
--- NOTE | 2023-08-16 13:49 | MM ---
Reason for Exam: Screening (asymptomatic). Last mammogram was performed 1 year(s) and 1 month(s) ago. Patient History: Menarche at age 11. Patient has no children. Left ovary removed at age 66. Right ovary removed at age 66. Hysterectomy at age 66. Postmenopausal. Endometrial cancer at or over age 48. 07/12/1999, Benign Stereotactic Core Biopsy on the right side. Risk Values: Savanah 5 year model risk: 2.3%. NCI Lifetime model risk: 6.6%. Prior Study Comparison: 07/14/2020 Bilateral Screening Mammogram, [facility]. 07/27/2021 Bilateral Screening Mammogram, [facility]. 07/28/2022 Bilateral MG 3D screening mammo w/cad, [facility]. Tissue Density: The breast tissue is heterogeneously dense. This may lower the sensitivity of mammography. Findings: Analyzed By CAD. Right breast biopsy clip. There is no suspicious group of microcalcifications or new suspicious mass. Benign-appearing calcifications bilaterally. Overall Assessment: Benign, BI-RAD 2 Management: Screening Mammogram of both breasts in [address] [facility] will attempt to contact patient to return for supplemental views and ultrasound if indicated. Patient should continue monthly self-breast exams. A clinical breast exam by your physician is recommended on an annual basis. This exam should not preclude additional follow-up of suspicious palpable abnormalities. Note on Savanah scores and lifetime risk: 1. A Savanah score greater than 3% is considered moderate risk. If this is the case, consider specialist referral to assess eligibility for a risk reducing agent. 2. If overall lifetime risk for the development of breast cancer is 20% or higher, the patient may qualify for future screening with alternating mammogram and breast MRI. Electronically signed and approved by: Jesus Stephenson DO
== END | disposition home or self-care (01) ==
LOC: RADMAMWWP 09:32
PROVIDERS: ATTEND Obstetrics & Gynecology
DX: Z12.31 Encounter for screening mammogram for malignant neoplasm of breast (principal); Z78.0 Asymptomatic menopausal state
CPT/HCPCS: 77063; 77067

== ENCOUNTER → 2024-03-18 | Outpatient (CLI) | payer MEDICARE ==
--- NOTE | 2024-04-10 16:34 | CT ---
EXAMINATION TYPE: CT abdomen pelvis w con CT DLP: 1622 mGycm, Automated exposure control for dose reduction was used. DATE OF EXAM: 03/18/2024 4:15 PM COMPARISON: CT chest abdomen and pelvis 05/19/2022, 02/06/2022, CT abdomen and pelvis 07/06/2021 CLINICAL INDICATION: Female, 69 year old with history of inguinal bilateral pain; TECHNIQUE: Standard CT of the abdomen and pelvis following the administration of 100 cc of Isovue 300 IV contrast material and oral contrast. Coronal and sagittal reformats were performed. Delayed interpretation due to institutional cyber attack. FINDINGS: LOWER CHEST: Unremarkable ABDOMEN LIVER: Unremarkable GALLBLADDER AND BILE DUCTS: The gallbladder is surgically absent. No biliary duct dilatation. Dropped surgical clip is identified along the posterior aspect of the liver and just superior to the vaginal cuff. PANCREAS: Unremarkable. SPLEEN: Unremarkable. ADRENAL GLANDS: Unremarkable. KIDNEYS AND URETERS: No evidence of hydronephrosis or renal calculus. Contrast is demonstrated within both collecting systems on the delayed phase. PELVIS BLADDER: Incompletely distended but grossly unremarkable. REPRODUCTIVE: The uterus is surgically absent. ABDOMEN & PELVIS STOMACH AND BOWEL: Small hiatal hernia. Periampullary duodenal diverticulum with additional diverticula involving the third portion the duodenum. Enteric contrast reaches the cecum. No focal bowel wall thickening or surrounding inflammatory changes. Distal colonic diverticula without evidence for acute diverticulitis. The appendix is within normal limits. No evidence of bowel obstruction. PERITONEUM: No evidence of pneumoperitoneum or free fluid. VASCULATURE: No evidence of aortic aneurysm. MUSCULOSKELETAL: No acute osseous abnormalities. Dextrocurvature of the lumbar spine. Moderate osteophytic changes of the lumbar spine. Straightening of the normal lumbar lordosis. Mild degenerative changes of both SI joints. LYMPH NODES: No evidence for lymphadenopathy. SOFT TISSUE/ABDOMINAL WALL: Small bilateral fat filled inguinal hernias left greater than right. IMPRESSION: 1. Small bilateral fat filled inguinal hernias with left greater than right redemonstrated. No CT evidence for patient's symptomology. 2. Duodenal and colonic diverticulosis. MTDD
== END | disposition home or self-care (01) ==
LOC: RADCTMAIN 12:36
PROVIDERS: ATTEND Obstetrics & Gynecology
DX: C54.1 Malignant neoplasm of endometrium (principal); K40.20 Bilateral inguinal hernia, without obstruction or gangrene, not specified as recurrent; K57.30 Diverticulosis of large intestine without perforation or abscess without bleeding
CPT/HCPCS: 82565; 84520; 74177; 36415; Q9967